=== PATIENT | male | born 2000 | race Caucasian/White ===

== ENCOUNTER 2021-10-12 18:36 | Emergency (ER) | payer OTHER ==
[2021-10-12] MEDS ORDERED: Lidocaine 1% w/Epinephrine 1:100K 20 ML VIAL ONE (19:52)
[2021-10-12] MEDS ORDERED: Triple Antibiotic Oint 1 GM Packet ONE (20:23)
== END 2021-10-12 20:28 | disposition home or self-care (01) ==
LOC: CSHERS 18:36
DX: S81.812A Laceration without foreign body, left lower leg, initial encounter (principal); W25.XXXA Contact with sharp glass, initial encounter; Y99.0 Civilian activity done for income or pay
CPT/HCPCS: 12002

== ENCOUNTER 2021-10-18 12:27 | Emergency (ER) | payer OTHER | END 2021-10-18 13:32 | disposition home or self-care (01) | LOC: CSHERS 12:27 | DX: S91.012D Laceration without foreign body, left ankle, subsequent encounter (principal); W25.XXXD Contact with sharp glass, subsequent encounter; Y99.0 Civilian activity done for income or pay ==